=== PATIENT | male | born 1945 | race Caucasian/White ===

== ENCOUNTER 2021-06-08 11:38 | Outpatient (CLI) | payer OTHER, SELFPAY ==
[2021-06-08 12:22] LABS: Alanine Aminotransferase 14 U/L (4-50); Albumin Level 4.3 g/dL (3.5-5.1); Alkaline Phosphatase 120 U/L (38-126); Anion Gap 8 mmol/L (8-16); Aspartate Amino Transferase 24 U/L (17-59); Bilirubin,Total 0.5 mg/dL (0.2-1.3); Blood Urea Nitrogen 17 mg/dL (9-20); Calcium 9.4 mg/dL (8.4-10.2); Carbon Dioxide 29 mmol/L (22-30); Chloride 103 mmol/L (98-107); Cholesterol 110 mg/dL (0-200); Estimated Glomerular Filt Rate > 60; Glucose 118 mg/dL (75-110); HDL Direct 30 mg/dL; Potassium 4.1 mmol/L (3.4-5.0); Sodium 140 mmol/L (137-145); Triglycerides 184 mg/dL (<150)
[2021-06-08 12:33] LABS: LDL Cholesterol Direct 43 mg/dL
[2021-06-08 12:53] LABS: Prostate Specific Antigen 0.7 ng/mL (< OR = 4.0)
== END 2021-06-08 11:39 | disposition home or self-care (01) ==
PROVIDERS: PCP Internal Medicine; Visit Provider Nurse Practitioner
DX: Z12.5 Encounter for screening for malignant neoplasm of prostate (principal); Z86.73 Personal history of transient ischemic attack (TIA), and cerebral infarction without residual deficits; Z51.81 Encounter for therapeutic drug level monitoring; Z79.899 Other long term (current) drug therapy
CPT/HCPCS: 36415; 80053; 80061; 84153; G0103

== ENCOUNTER 2022-11-28 09:14 | Emergency (ER) | payer MEDICARE, SELFPAY ==
--- NOTE | ~2022-11-28 | XR_ITS ---
Portable chest x-ray Comparison: 08/19/2011 Clinical History: Weakness Findings: Lungs are clear, without focal consolidation or pleural effusion. Cardiomediastinal silho uette is stable. Bones and soft tissues are unremarkable. Impression: Clear lungs. Reviewed, dictated and finalized at location . IC SPEAKER Impression: Clear lungs.
[2022-11-28 09:13] VITALS: BP 106/87; PULSE 98; RESP 24; TEMP 37.8; O2SAT 97
[2022-11-28 09:25] VITALS: PULSE 98
--- NOTE | 2022-11-28 09:56 | ECG_ITS ---
Measurements Intervals [place] Rate: 95 P: 51 HI: 158 QRS: -52 QRSD: 82 T: 53 QT: 336 QTc: 424 Interpretive Statements SINUS RHYTHM LOW QRS VOLTAGE IN EXTREMITY LEADS [QRS DEFLECTION < 0.5 mV IN LIMB LEADS] INFERIOR MYOCARDIAL INFARCTION , PROBABLY OLD [40+ ms Q WAVE AND/OR ST/T ABNORMALITY IN II/aVF] NO PREVIOUS ECG AVAILABLE FOR COMPARISON Electronically Signed On 11-28-2022 14:54:04 TYRE FITTER by Madeline Aguirre M.D.
--- NOTE | 2022-11-28 10:08 | ED.GENADULT ---
HPI - General Adult General Chief complaint: Weakness Stated complaint: lethargic History of Present Illness HPI narrative: This is a 77-year-old male with history of MS presenting ED for weakness. The patient himself has no complaints is not Wanna be in the emergency department. His made him come because last night she noticed that he had been more lethargic than usual. She felt that he was confused and unable answer her questions as normal. His condition has slightly improved today. Patient denies fever, chills, chest pain, difficulty breathing, abdominal pain, urinary symptoms or retention or any such rashes or skin breakdown. Patient's MS usually presents with urinary retention which he is not currently experiencing. Related Data Home Medications Medication Instructions Recorded Confirmed lisinopril 2.5 mg tablet 2.5 mg PO DAILY 06/18/22 06/18/22 atorvastatin 20 mg tablet 10 mg PO DAILY 06/19/22 Allergies Allergy/AdvReac Type Severity Reaction Status Date / Time No Known Allergies Allergy Mild Verified 06/19/22 15:06 Review of Systems Review of Systems: CONSTITUTIONAL: Denies night sweats. EYES: No eye pain ENT: Denies rhinorrhea CARDIOVASCULAR: Denies palpitations RESPIRATORY: Denies hemoptysis GASTROINTESTINAL: Denies hematemesis GENITOURINARY: Denies hematuria. SKIN: Denies rash MUSCULOSKELETAL: Denies myalgia. NEUROLOGIC: Denies weakness. PSYCHIATRIC: Denies delusions PMFSH Past Medical History Medical History Multiple sclerosis Family History Family History Father Cerebrovascular accident Patient's father is Mother Carcinoma of colon Patient's mother is Sibling Patient's sister is in good health Patient's brother is in good health Social History Social History Smoking packs per day: 1 Smoking cigarettes per day: 20.0 Years smoked: 60 Smoking pack-years: 60.00 Smoking status: Current every day smoker Tobacco type: cigarettes Second hand tobacco smoke exposure: Yes Alcohol intake: never Substance use: never Substance use type: does not use Exam Narrative: APPEARANCE: No apparent distress. Patient is pale and appears chronically unwell Head: atraumatic. EYES: EOMI, NOSE: Atraumatic NECK: Trachea midline RESPIRATORY: clear to auscultation bilaterally, no increased work of breathing, CARDIOVASCULAR: RRR, no peripheral edema ABDOMINAL: Non-distended, soft nontender no guarding or rebound MUSCULOSKELETAl: No obvious deformities NEURO: Alert. paralysis of the left upper extremity and bilateral lower extremities which is chronic. right upper extremity is moving normally. cranial nerves 2-12 grossly intact. Patient is nonambulatory at baseline. SKIN:: Warm, dry. Normal color PSYCHIATRIC: Normal affect Course Vital Signs Vital signs: Vital Signs Temperature 100.1 F H 11/28/22 09:13 Pulse Rate 98 11/28/22 09:13 Respiratory Rate 24 H 11/28/22 09:13 Blood Pressure 106/87 11/28/22 09:13 Pulse Oximetry 97 11/28/22 09:13 Oxygen Delivery Room Air 11/28/22 09:13 Temperature 100.1 F H 11/28/22 09:13 Pulse Rate 98 11/28/22 09:25 Respiratory Rate 24 H 11/28/22 09:13 Blood Pressure 106/87 11/28/22 09:13 Pulse Oximetry 97 11/28/22 09:13 Oxygen Delivery Room Air 11/28/22 09:13 Medical Decision Making MDM Narrative Medical decision making narrative: This 77-year-old male presenting ED with weakness and confusion is reported by his . Patient self has no complaints which a workup. Chest x-ray, lab work, cultures and viral swabs have been ordered. patient has been given IV fluids. Chest x-ray was negative. EKG interpretation: Rhythm [sinus], Rate 95, [place] -[normal], [place] -[normal], QRS [narrow],
[2022-11-28] MEDS: SODIUM CHLORIDE 0.9% IV 1,000 ML 999 ML IV CONT (10:17)
[2022-11-28 10:29] LABS: Basophils Absolute Auto 0.1 K/mm3 (0.0-0.1); Basophils Percent Auto 0.6 % (0.2-1.2); Eosinophils Percent Auto 0.1 % (0-4.4); Hematocrit 43.3 % (42.0-52.0); Hemoglobin 14.3 g/dL (14.0-18.0); Immature Granulocyte Absolute 0.07 K/mm3 (0.00-0.031); Immature Granulocyte Percent A 0.6 % (0-0.5); Immature Platelet Fraction Pct 3.3 % (0.9-11.2); Lymphocytes Percent Auto 19.1 % (18.3-44.2); Mean Corpuscular Hemoglobin 32.3 pg (26-34); Mean Corpuscular Volume 97.7 fl (80-100); Monocytes Absolute Auto 2.2 K/mm3 (0.1-0.6); Monocytes Percent Auto 17.8 % (2.6-8.5); Neutrophils Absolute Auto 7.8 K/mm3 (1.3-6.7); Neutrophils Percent Auto 61.8 % (45.5-73.1); Platelet Count Result 221 k/mm3 (150-375); Red Blood Count 4.43 M/mm3 (4.6-6.20); Red Cell Distribution Width 13.6 % (11.5-14.5); White Blood Count 12.6 K/mm3 (4.5-10.0)
[2022-11-28 10:37] LABS: Alanine Aminotransferase 28 U/L (6-50); Albumin Level 3.6 g/dL (3.5-5.1); Alkaline Phosphatase 110 U/L (38-126); Anion Gap 5 mmol/L (8-16); Aspartate Amino Transferase 28 U/L (17-59); Bilirubin,Total 0.5 mg/dL (0.2-1.3); Blood Urea Nitrogen 17 mg/dL (9-20); Calcium 8.2 mg/dL (8.4-10.2); Carbon Dioxide 26 mmol/L (22-30); Chloride 103 mmol/L (98-107); Estimated CRCL calculation 46 ml/min; Estimated Glomerular Filt Rate > 60; Glucose 98 mg/dL (65-110); Potassium 3.6 mmol/L (3.4-5.0); Sodium 134 mmol/L (137-145)
[2022-11-28 10:40] LABS: Glucose Point of Care 95 mg/dl (65-105)
[2022-11-28 10:56] LABS: Add Urine Microscopic? YES; Appearance Urine Slightly Cloudy (Clear); Bacteria Urine 3+ /hpf; Bilirubin Urine Negative (Negative); Blood Urine 1+ (Negative); Color Urine Light Yellow (Yellow); Glucose Urine UA Negative (Negative); Ketones Urine Trace mg/dL (Negative); Leukocyte Esterase Ur 1+ LEU/UL (Negative); Mucus Urine Rare /lpf; Nitrate Urine Negative (Negative); Protein Urine 1+ mg/dL (Negative); Specific Grav Ur 1.025 (1.001-1.035); Squamous Epithelial Cell Urine Rare /hpf (Few); Urobilinogen Urine 0.2 mg/dL (<2.0); WBC Urine 51-75 /hpf; pH Urine 5.5 (5.0-9.0)
[2022-11-28 11:25] LABS: Basophils Absolute Auto 0.1 K/mm3 (0.0-0.1); Basophils Percent Auto 0.7 % (0.2-1.2); Eosinophils Absolute Auto 0.1 K/mm3 (0-0.3); Eosinophils Percent Auto 0.4 % (0-4.4); Hematocrit 40.8 % (42.0-52.0); Hemoglobin 13.7 g/dL (14.0-18.0); Immature Granulocyte Absolute 0.04 K/mm3 (0.00-0.031); Immature Granulocyte Percent A 0.3 % (0-0.5); Lymphocytes Absolute Auto 2.53 K/mm3 (0.9-3.2); Lymphocytes Percent Auto 19.5 % (18.3-44.2); Mean Corpuscular HGB Conc 33.6 g/dl (32-36); Mean Corpuscular Hemoglobin 32.7 pg (26-34); Mean Corpuscular Volume 97.4 fl (80-100); Mean Platelet Volume 10.1 fl (7.4-10.4); Monocytes Absolute Auto 2.5 K/mm3 (0.1-0.6); Monocytes Percent Auto 19.1 % (2.6-8.5); Neutrophils Absolute Auto 7.8 K/mm3 (1.3-6.7); Platelet Count Result 248 k/mm3 (150-375); Red Blood Count 4.19 M/mm3 (4.6-6.20); Red Cell Distribution Width 13.6 % (11.5-14.5)
[2022-11-28 11:31] LABS: Influenza A QL RT-PCR Negative (Negative); Influenza B QL RT-PCR Negative (Negative); RSV RNA, RT-PCR Negative (Negative); SARS-CoV-2 RNA PCR Positive
[2022-11-28 11:33] LABS: Alanine Aminotransferase 27 U/L (6-50); Albumin Level 3.4 g/dL (3.5-5.1); Alkaline Phosphatase 103 U/L (38-126); Anion Gap 5 mmol/L (8-16); Aspartate Amino Transferase 26 U/L (17-59); Bilirubin,Total 0.5 mg/dL (0.2-1.3); Blood Urea Nitrogen 17 mg/dL (9-20); Carbon Dioxide 25 mmol/L (22-30); Chloride 108 mmol/L (98-107); Estimated CRCL calculation 46 ml/min; Estimated Glomerular Filt Rate > 60; Glucose 93 mg/dL (65-110); Lactic Acid Reflex 0.9 mmol/L (0.7-2.0); Lipase 45 U/L (23-300); Potassium 3.5 mmol/L (3.4-5.0); Sodium 138 mmol/L (137-145)
[2022-11-28 11:44] LABS: Troponin I < 0.012 ng/mL (0.000-0.034)
[2022-11-28] MEDS: CEPHALEXIN 500 MG CAPSULE PO (13:27)
[2022-11-28 13:38] VITALS: BP 122/89; PULSE 86; RESP 15; O2SAT 99
== END 2022-11-28 13:39 | disposition home or self-care (01) ==
PROVIDERS: Emergency Provider Emergency Medicine; PCP Internal Medicine
DX: U07.1 COVID-19 (principal); N39.0 Urinary tract infection, site not specified; G35 Multiple sclerosis; F17.210 Nicotine dependence, cigarettes, uncomplicated; R94.31 Abnormal electrocardiogram [ECG] [EKG]
CPT/HCPCS: 36415; 71045; 80053; 81001; 82948; 83605; 83690; 83735; 84484; 85025; 85055; 87040; 87077; 87086; 87186; 87637; 93005; 96360; 96361; 99284; A9270; J7030

== ENCOUNTER 2025-08-23 07:50 | Outpatient (CLI) | payer OTHER, MEDICARE, SELFPAY ==
--- NOTE | ~2025-08-23 | MR_ITS ---
EXAMINATION: MR brain/brain stem wo/w con DATE: 08/23/2025 08:56 INDICATION: Multiple sclerosis. TECHNIQUE: Magnetic resonance imaging (MRI) of the brain and brainstem was performed without and with 11 mL MultiHance intravenous contrast. COMPARISON: None. FINDINGS: There is an extensive distribution of increased T2-weighted signal intensity in the cerebral white matter with confluence in the periventricular regions. There are lesions of increased T2-weighted signal intensity in the nba and bilateral cerebellum. None of the lesions enhance. There is no acute ischemic infarct or intracranial hemorrhage. The ventricles are normal in size. The orbits are normal. There is mild mucosal thickening in the ethmoid sinuses. There are small mastoid effusions. IMPRESSION: 1. 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 Reviewed, dictated and finalized at location E. IMPRESSION: 1. 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
--- OUTSIDE RECORDS SUMMARY | 2025-08-23 08:04 | XMS_ITS | Clinical Summary ---
Author Organization [facility] Address [address] [place] [address] Care Team Providers Care Textile Machine Operator Name Role Phone Josue Rock Milan DO Primary Care Provider [phone] Allergies No known active allergies Medications atorvastatin (LIPITOR) 20 MG tablet Take 10 mg by mouth nightly at bedtime. Active CALCIUM-VITAMIN D OR Take 1 tablet by mouth daily. Active lisinopril (PRINIVIL) 2.5 MG tablet Take 1.25 mg by mouth daily. 1/2 tablet Active guaiFENesin-dext romethorphan (ROBITUSSIN DM) 100-10 MG/5ML syrup Take 5 mLs by mouth 2 (two) times daily as needed for Cough. Active Nutritional Supplements (ENSURE) liquid Take 237 mLs by mouth 2 (two) times a day. Active albuterol sulfate HFA 108 (90 Base) MCG/ACT inhaler Inhale 2 puffs into the lungs every 4 (four) hours as needed for Wheezing or Shortness of breath. 6.7 g 3 Active Active Problems Problem Noted Date Diagnosed Date UTI (urinary tract infection) 12/12/2022 Encounters Date Type Department Care Team Description 07/19/2025 Transcribe Orders [facility] Pre Access Team [address] [place] [address] Jerry Pruett MD 07/19/2025 Transcribe Orders [facility] Pre Access Team [address] [place] [address] Jerry Pruett MD from Last 3 Months Family History Medical History Relation Comments Arthritis Father Transient ischemic attack Father Arthritis Mother Cancer Mother Relation Status Comments Father Mother Social History Tobacco Use Types Packs/Day Years Used Date Smoking Tobacco: Some Days Cigarettes Smokeless Tobacco: Never Tobacco Cessation:Ready to Q uit: Not Asked; Counseling Given: Not Answered Humiliation, Afraid, Rape, and Kick questionnair e Answer Date Recorded Within the last year, have y ou been afraid of your partner or ex-partner? No 12/12/2022 Within the last year, have y ou been humiliated or emotionally abused in other ways by your partner or ex-partner? No Within the last year, have y ou been kicked, hit, slapped, or otherwise physically hurt by your partner or ex-partner? No 12/12/2022 Within the last year, have y ou been raped or forced to have any kind of sexual activity by your partner or ex-partner? No 12/12/2022 Social Connection and Isolat ion Panel [NHANES] Answer Date Recorded In a typical week, how many times do you talk on the phone with family, friends, or neighbors? More than three times a week 12/12/2022 How often do you get togethe r with friends or relatives? Once a week 12/12/2022 How often do you attend chur ch or anabaptism services? 1 to 4 times per year 12/12/2022 Do you belong to any clubs o r organizations such as yazidi groups, unions, fraternal or athletic groups, or school groups? No 12/12/2022 How often do you attend meet ings of the clubs or organizations you belong to? Never 12/12/2022 Are you , , di vorced, , never , or living with a partner? 12/12/2022 AUDIT-C Answer Date Recorded Q1: How often do you have a drink containing alcohol? Never 12/12/2022 Q2: How many drinks containi ng alcohol do you have on a typical day when you are drinking? Patient does not drink Q3: How often do you have si x or more drinks on one occasion? Never 12/12/2022 Overall Financial Resource Strain (CARDIA) Answe r Date Recorded How hard is it for you to pa y for the very basics like food, housing, medical care, and heating? Not very hard 12/12/2022 [facility] - Occupational Stress Questionnaire Answer Date Recorded Do you feel stress - tense, restless, nervous, or anxious, or unable to sleep at night because your mind is troubled all the time - these days? Not at all 12/12/2022 Exercise Vital Sign Answer Date Recorde d On average, how many days pe r week do you engage in moderate to strenuous exercise (like a brisk walk)? 0 days 12/12/2022 On average, how many minutes do you engage in exercise at this level? 0 min 12/12/2022 Hunger Vital Sign Answer Date Recorded Within the past 12 months, y ou worried that your food would run out before you got the money to buy more. Never true 12/12/19 23 Within the past 12 months, t he food you bought just didn't last and you didn't have money to get more. Never true 12/12/2022 PRAPARE - Transportation Answer Date Re corded In the past 12 months, has l ack of transportation kept you from medical appointments or from getting medications? No 12/01 In the past 12 months, has l ack of transportation kept you from meetings, work, or from getting things needed for daily living? No 12/12/2022 Housing Stability Vital Sign Answer Juan M e Recorded In the last 12 months, was t here a time when you were not able to pay the mortgage or rent on time? No 12/12/2022 In the last 12 months, how many places have you lived? 1 12/12/2022 In the last 12 months, was t here a time when you did not have a steady place to sleep or slept in a custodial (including now)? No 12/12/2022 Sex and Gender Information Value Date Recorded Sex Assigned at Not on file Legal Sex Male 6:29 PM CDT Gender Identity Not on file Sexual Orientation Not on file Last Filed Vital Signs Vital Sign Reading Time Taken Comments Blood Pressure 134/61 12/14/2022 6:57 AM MECHANICAL DESIGN TECHNICIAN Pulse 90 12/14/2022 6:57 AM MECHANICAL DESIGN TECHNICIAN Temperature 36.5 C (97.7 F) 12/14/2022 6:57 AM MECHANICAL DESIGN TECHNICIAN Respiratory Rate 18 12/14/2022 6:57 AM MECHANICAL DESIGN TECHNICIAN Oxygen Saturation 95% 12/14/2022 6:57 AM MECHANICAL DESIGN TECHNICIAN Inhaled Oxygen Concentration - - Weight 51.2 kg (112 lb 14 oz) 12/14/2022 4:50 AM MECHANICAL DESIGN TECHNICIAN Height 165.1 cm (5' 5) 12/12/2022 7:15 PM MECHANICAL DESIGN TECHNICIAN Body Mass Index 18.78 12/12/2022 7:15 PM MECHANICAL DESIGN TECHNICIAN Plan of Treatment Upcoming Encounters Date Type Department Care Team (Late st Contact Info) Description 09/20/2025 2:30 PM CDT Appointment [facility] [address] [place] [id number] Jerry Pruett MD [address] [place] [address] Health Maintenance Due Date Last Done Comments Hepatitis C 1963 DTaP, Tdap and Td Vaccines ( 1 - Tdap) 1965 Pneumococcal Vaccine: 50+ Ye ars (1 of 2 - PCV) 1965 Zoster Vaccines (1 of 2) 1996 Annual Medicare Wellness Visit 2011 RSV Immunization or 60+ Years (1 - 1-dose 75+ series) 2021 COVID-19 Vaccine (1 - 2023-2 5 season) 2025 Meningococcal B Vaccine Aged Out No l onger eligible based on patient's age to complete this topic Meningococcal Vaccine Aged Out No marcia bailey eligible based on patient's age to complete this topic RSV Immunizations Under 20 Months Aged Out No longer eligible based on patient's age to complete this topic Insurance [facility] OFFICE OF COMM[facility] Advance Directives Documents on File Type Date Recorded Patient Manufacturing Software Engineer Expl anation Advance Directives and Living Will 12/12/2022 3:10 PM POA / ADVANCED DIRECTIVE / LIVING WILL * DNR (Latest Code Status on File) Date Activated Date Inactivated Comments 12/13/2022 1:17 PM 12/14/2022 3:07 PM Care Teams Textile Machine Operator Relationship Specialty Start Date End Date Rock Salas DO [facility] [address] [place] [id number] PCP - General INTERNAL MEDICINE 12/12/22
== END 2025-08-23 07:51 | disposition home or self-care (01) ==
LOC: ANHIMG 07:52
PROVIDERS: PCP Internal Medicine
DX: G35 Multiple sclerosis (principal); G93.89 Other specified disorders of brain
CPT/HCPCS: 70553; A9577